=== PATIENT | male | born 1940 | race Caucasian/White ===

== ENCOUNTER → 2017-09-23 | Outpatient (CLI) | payer OTHER ==
[~2017-09-23] MED LIST: IOPAMIDOL (ISOVUE 370) 100 ML BTL IV ONE
== END ==
LOC: FIMAGING 08:48
PROVIDERS: ATTEND Surgery
DX: I74.3 Embolism and thrombosis of arteries of the lower extremities (principal); I73.9 Peripheral vascular disease, unspecified
CPT/HCPCS: 75635; Q9967; 82565-PO

== ENCOUNTER 2017-10-12 06:12 | Day surgery (SDC) | payer OTHER ==
[2017-10-12] MEDS ORDERED: ASPIRIN EC 325 MG TAB PO ONE (06:14)
[2017-10-12] MEDS ORDERED: DIAZEPAM 5 MG TAB PO ONE (06:14)
[2017-10-12] MEDS ORDERED: NS 1,000 ML IV ONE (06:14)
[2017-10-12] MEDS ORDERED: FAMOTIDINE 20 MG TAB PO ONE (06:14)
[2017-10-12] MEDS ORDERED: diphenhydrAMINE 25 MG CAP PO ONE (06:14)
--- NOTE | 2017-10-12 06:33 | CPEKG ---
Heart Rate: 55 RR Interval: 1091 P-R Interval: 196 QRSD Interval: 144 QT Interval: 428 QTC Interval: 410 P Stonewall: 66 QRS Stonewall: -15 T Wave Stonewall: -6 EKG Severity - ABNORMAL ECG - EKG Impression: SINUS RHYTHM EKG Impression: RIGHT BUNDLE BRANCH BLOCK EKG Impression: INFERIOR INFARCT, AGE INDETERMINATE Electronically Signed By: Kevin Bertrand 14-Oct-2017 21:37:06
[2017-10-12] MEDS ORDERED: CLOPIDOGREL BISULFATE 75 MG TAB ONE (06:47)
[2017-10-12 06:55] LABS: PLATELET COUNT 199 10^3/uL (150-400)
[2017-10-12] MEDS ORDERED: CLOPIDOGREL BISULFATE 75 MG TAB PO ONE (07:00)
[2017-10-12 07:04] LABS: INR 0.9 (0.83-1.16); PROTIME(PATIENT) 12.4 SEC (12.0-15.0)
--- NOTE | 2017-10-12 07:05 | PDPROPOC ---
Sedation Plan of Care Sedation Plan of Care: mental status noted, patient educated of risks, benefits , alternatives, patient can tolerate sedation ASA Classification: ASA 2 Planned drugs: fentanyl, midazolam Mallampati Score: Class 2 Mallampati Reference Image: Patient passed 3-3-2 rule?: Yes
--- NOTE | 2017-10-12 07:07 | PDGENHP ---
History & Physical Chief Complaint: claudication History of Present Illness: 76 yo male with hx of PAD presents with worsening claudication. CTA shows moderate right YARD SWITCH OPERATOR disease. Pertinent Past, Social, Family History: active runner, non-smoker Relevant Physical Exam: decreased right pedal pulses Cardiorespiratory Assessment: cta-b. rrr s1 s2. decreased right pedal pulse, 2 + LLE
[2017-10-12] MEDS ORDERED: LIDOCAINE 1% 300 MG/30 ML SDV ONE (07:10)
[2017-10-12] MEDS ORDERED: fentaNYL 100 MCG/2 ML INJ ONE (07:11)
[2017-10-12] MEDS ORDERED: MIDAZOLAM 2 MG/2 ML VIAL ONE (07:11)
[2017-10-12] MEDS ORDERED: IOPAMIDOL (ISOVUE-300) 150 ML BTL ONE (07:11)
[2017-10-12] MEDS ORDERED: HEPARIN 10,000 UNIT/10 ML MDV (1,000 UNIT/ML) ONE (07:42)
[2017-10-12] MEDS ORDERED: ATROPINE SULFATE 1 MG/10 ML SYR IVP PRN (08:53)
[2017-10-12] MEDS ORDERED: NITROGLYCERIN 0.4 MG BTL SL PRN (08:53)
[2017-10-12] MEDS ORDERED: ONDANSETRON 4 MG/2 ML VIAL IVP PRN (08:53)
[2017-10-12] MEDS ORDERED: OXYCODONE/APAP 5/325 TAB PO PRN (08:53)
[2017-10-12] MEDS ORDERED: HYDROCODONE/APAP 5/325 TAB PO PRN (08:53)
--- NOTE | 2017-10-12 09:49 | CPIP ---
[f rep st] INVASIVE CARDIAC PROCEDURE DATE OF PROCEDURE: 10/12/2017 INDICATION FOR PROCEDURE: Claudication. PROCEDURE: 1. Nonselective left groin sheathogram. 2. Abdominal aortogram. 3. Catheter placed in right common femoral artery. 4. Runoff of right lower extremity. 5. PVC LOADER of right ostial SFA utilizing 4 x 20 balloon and drug coated balloon 5.0 x 40 and 6.0 x 40. HISTORY: Briefly, this is a 76-year-old male with history of severe peripheral arterial disease. Th e patient has been having worsening right lower extremity claudication despite active therapy. The p atalban actually in fact has participated in the last 40 [employer] races. Patient had prior bilateral femoral surgery by Dr. Jong Alvarez and had been evaluated as an outpatient. CTA performe d as an outpatient showed what appeared to be moderate disease of the right ROLL FORMING MACHINE OPERATOR, SFA junction. Given these findings, patient consented for invasive angiography. DESCRIPTION OF PROCEDURE: After informed was obtained, the patient was brought to [facility] where the left groin was prepped and draped in sterile fashion. Using lidocaine, a short 6-Swiss sheath was place d in the left common artery, verified angiographically. A 6-Swiss [place] flush catheter was adva nced over the 3.5 guidewire to the ascending aorta. Abdominal aortogram was obtained which showed pa tent distal aorta, patent bilateral common iliac arteries. The right common iliac artery had 40% dif fuse disease. The bilateral internal iliac arteries appeared patent. External iliac arteries appear ed to be patent. The ROLL FORMING MACHINE OPERATOR on the left side appeared to be patent. The ROLL FORMING MACHINE OPERATOR on the right side appeared to be patent and appeared to be a grafted area from the iliac artery to the femoral artery just belo w the area of the ROLL FORMING MACHINE OPERATOR. There was a takeoff of the SFA and profunda. At this takeoff there was a lar ge amount of heavy calcification appearing to obstruct flow into both the profunda and SFA, although distally these vessels appeared to have good runoff. At this time a long stiff Glidewire was placed into the distal ROLL FORMING MACHINE OPERATOR. The Athol flush catheter was removed. The short 6-Swiss sheath removed. A 6-Swiss 45 cm sheath was placed in the right contralateral external iliac artery verified angiogra phically. INTERVENTION REPORT: The patient was administered 8000 heparin IV. A Choice PT wire was attempted t o wire across this heavy calcification. A choice PT wire was chosen secondary to the fact that the p atient did have intact profunda and SFA runoff and we wanted to preserve this flow without causing an y type of distal embolization or dissection. Runoff of the right lower extremity showed mild to mode rate calcification throughout the SFA but overall a very patent vessel. The popliteal on the right s vicky artery appeared to be patent and there appeared to be initially 3 vessel runoff to the foot. Due to the patient's elevated creatinine we decided to hold off on further angiographic views to minimiz e contrast utilization. A Choice PT wire with a Quick Cross Support 0.014 catheter was utilized and this successfully crossed the lesion in the SFA. The wire was placed distally into the SFA. We then removed the Quick Cross catheter and decided to proceed with PVC LOADER of this vessel initially with a 4 x 20 balloon noncompliant inflated to 8 atmospheres. After it was deflated, angiogram obtained which showed improved patency of the SFA. We decided to proceed with drug-coated balloon placement with a 5.0 x 40 Lutonix balloon inflated to 8 atmospheres for 2 minutes time. After deflation this was anselmo rashmi and angiography obtained which showed improved patency. Further improvement of the SFA. We then followed this with a 6.0 x 40 Lutonix drug-coated balloon. This was inflated to 8 atmospheres and k ept up for 2 minutes time. After deflation angiographic images obtained, which showed much improved patency of the SFA. Of note, the calcium did shift to the ostium of the profunda, however, the profu nda was widely patent, indicating that this calcium was not circumferential and occluding flow. At t his time, the wire was removed. The sheath was removed over the 0.035 wire and replaced with a short 7-Swiss sheath. The patient tolerated the procedure well. No complications. IMPRESSION: Successful percutaneous transluminal angioplasty with drug-coated balloon for heavily ca lcified ostial superficial femoral artery disease. PLAN: The patient will have his sheath DC 'd when his ACT is less than 170. Stenting was not utiliz ed secondary to the fact the patient had intact flow through his ROLL FORMING MACHINE OPERATOR, SFA junction as well as the fac t that any type of stent procedure may senior living off the profunda artery. Additionally by holding off coco nting the patient also has all options preserved and if needed can still have a limited endarterectom y of this site by Dr. Alvarez if needed in the future. /[id number]/MODL
== END 2017-10-12 16:15 | disposition home or self-care (01) ==
LOC: FCATH 06:12
PROVIDERS: ATTEND Internal Medicine Cardiovascular Disease
PROC: 047K3Z1 Dilation of Right Femoral Artery using Drug-Coated Balloon, Percutaneous Approach (ICD-10-PCS; principal; 2017-10-12)
PROC: B4001ZZ Plain Radiography of Abdominal Aorta using Low Osmolar Contrast (ICD-10-PCS; principal; 2017-10-12)
DX: I73.9 Peripheral vascular disease, unspecified (principal)
CPT/HCPCS: 37224; 75625; 75710; 93005; C1725; C1769; C1887; C2623; J0461; J1644; J2250; J3010; Q9967

== ENCOUNTER 2017-11-18 06:40 | Inpatient (IN) | payer OTHER ==
--- NOTE | 2017-11-17 13:06 | GHP ---
[f rep st] PREOP HISTORY AND PHYSICAL DATE OF ADMISSION: 11/18/2017 CHIEF COMPLAINT: Right leg pain. HISTORY OF PRESENT ILLNESS: The patient is a 76-year-old male with a history of carotid endarterectomy, CABG, and bilateral common femoral artery endarterectomies with patch closure on the left and iliofemoral bypass on the right, who presents with recurrent right greater than left claudication symptoms characterized by calf cramping. He is here to go over the CT angiogram with runoff. He also had arterial studies performed showing an TR of 0.74 on the right and 1.08 on the left. PAST MEDICAL HISTORY: Coronary artery disease, carotid artery occlusion, hyperlipidemia, hypertension, peripheral vascular disease. PAST SURGICAL HISTORY: Knee arthroscopy on the right, carotid endarterectomy, coronary artery bypass graft, hernia repair, vasectomy. MEDICATIONS: 1. Amlodipine 5 mg. 2. Atorvastatin 80 mg. 3. Baby aspirin. 4. Co Q10. 5. Doxazosin 2 mg. 6. Hydrochlorothiazide 25 mg. 7. Hctz-Lisinopril 40 mg. 8. Melatonin 5 mg. 9. Metoprolol tartrate 25 mg. 10. Milk thistle. 11. Plavix 75 mg. 12. Spironolactone 25 mg. 13. Trazodone 50 mg. 14. Vitamin B complex. ALLERGIES: Penicillins. FAMILY MEDICAL HISTORY: Coronary artery disease. SOCIAL HISTORY: He is a nonsmoker, current alcohol user, exercises regularly, he is with 2 kids. He denies recreational drug use. PHYSICAL EXAM: GENERAL: Well-appearing, well-dressed, no acute distress. HEENT: Normocephalic, atraumatic. Pupils equal and round. No gross hearing deficits. Mucous membranes moist. CARDIAC: Regular rate and rhythm. No clicks, murmurs or rubs. CHEST: Clear to auscultation bilaterally, no increased work of breathing. ABDOMEN: Soft and nontender. EXTREMITIES: Palpable femoral pulses, palpable left pedal pulses, nonpalpable right pedal pulses and weak, but audible, pulses on Doppler. SKIN: Warm and dry. No rashes. NEURO: Grossly intact. PSYCHIATRIC: Appropriate mood and affect. IMPRESSION/PLAN: The CT angiogram does reveal some areas of stenosis. Given his symptoms and reduced right pedal pulses, we will plan for surgical femoral- popliteal bypass graft. Risks and options were fully discussed with the patient. Risks of surgery include, but are not limited to infection, bleeding, risk of limb loss, need for further surgery, failure to heal symptoms, heart attack, and . Patient understands and wishes to proceed. /[id number]/MODL MTDD
[2017-11-18] MEDS ORDERED: CLINDAMYCIN 900 MG/DEXTROSE 50 ML IV ONE (06:46)
[2017-11-18] MEDS ORDERED: LR 1,000 ML IV ONE (06:49)
[2017-11-18] MEDS ORDERED: THROMBIN (BOVINE) 20,000 UNIT SPRAY TP ONE (07:36)
[2017-11-18] MEDS ORDERED: PAPAVERINE HCL 60 MG/2 ML SDV ONE (07:37)
[2017-11-18] MEDS ORDERED: PROTAMINE SULFATE 50 MG/5 ML VIAL IVP ONE ×2 (07:37→11:24)
[2017-11-18] MEDS ORDERED: IOTHALAMATE MEG (CONRAY) 50 ML VIAL IV ONE (07:37)
[2017-11-18] MEDS ORDERED: BUPIVACAINE 0.5% 30 ML SDV ONE (07:37)
[2017-11-18] MEDS ORDERED: THROMBIN(HUM PLAS)/FIBRINOG/CA 2 ML VIAL TP ONE (07:38)
[2017-11-18 07:48] LABS: PLATELET COUNT 185 10^3/uL (150-400)
--- NOTE | 2017-11-18 08:00 | PDHPUP ---
History & Physical Update H&P update statement: This history and physical update is based on an assessment of the patient which was completed after admission or registration (within 24 hours), but prior to the surgery/procedure. H&P update: H&P reviewed & patient examined, no change in patient's condition since H&P completed
--- NOTE | 2017-11-18 08:02 | POSTANESTH ---
Post Anesthetic Evaluation Cardiovascular Status: Normal, Stable Respiratory Status: Normal, Stable Level of Consciousness/Mental Status: Can Participate in Eval, Alert and Oriented Pain Control: Adequate, Prn Tx Ordered Nausea/Vomiting Control: Adequate, Prn Tx Ordered Complications Possibly Related to Anesthesia: None Noted
--- NOTE | 2017-11-18 08:05 | PDANEPAE ---
ANE History of Present Illness 76 yo male with R decreased pedal pulses and claudication for R fem-popliteal bypass. ANE Past Medical History - Cardiovascular History Hx Hypertension: Yes Hx Arrhythmias: No Hx Chest Pain: No Hx Coronary Artery / Peripheral Vascular Disease: Yes Hx CHF / Valvular Disease: No Hx Palpitations: No Cardiovascular History Comment: PVD,CAD - Pulmonary History Hx COPD: No Hx Asthma/Reactive Airway Disease: No Hx Recent Upper Respiratory Infection: No Hx Oxygen in Use at Home: No Hx Sleep Apnea: No Sleep Apnea Screening Result - Last Documented: Positive - Neurologic History Hx Cerebrovascular Accident: No Hx Seizures: No Hx Dementia: No - Endocrine History Hx Diabetes: No Hypothyroid: No Obesity: no - Renal History Hx Renal Disorders: No - Liver History Hx Hepatic Disorders: No - Neurological & Psychiatric Hx Hx Neurological and Psychiatric Disorders: No - Cancer History Hx Cancer: No - Congenital Disorder History Hx Congenital Disorders: No - GI History Hx Gastrointestinal Disorders: No - Other Health History Other Health History: missing 2 back molars - Chronic Pain History Chronic Pain: No - Surgical History Prior Surgeries: CABG x 5 2005, Endarterectomy 2008, Left knee meniscus sx 2014 , hernia 2015 fem-pop bypass bilat ANE Review of Systems Review of Systems: - Exercise capacity METS (RN): 4 METS - Systems Constitutional: Reports: no symptoms Cardiac: Reports: no symptoms Muscolosketal: Reports: other (claudication) ANE Patient History - Allergies Allergies/Adverse Reactions: Penicillins Allergy (Verified 11/17/17 17:30) - Home Medications Home Medications: Aspirin EC [Aspirin EC 81 mg (*)] 81 mg PO DAILY 05/28/14 [Last Taken 11/17/17] Atorvastatin Calcium [Lipitor 80 mg] 80 mg PO HS 05/28/14 [Last Taken 11/17/17] Hydrochlorothiazide [HCTZ (*)] 25 mg PO DAILY 05/28/14 [Last Taken 11/17/17 07: 00] Metoprolol Tartrate [Lopressor 25 mg (*)] 25 mg PO BID 05/28/14 [Last Taken 06:00] traZODone [traZODONE 50MG (*)] 25 - 50 mg PO HS 05/28/14 [Last Taken 11/17/17] Doxazosin Mesylate 2 mg PO HS 10/05/17 [Last Taken 11/17/17 20:00] Lisinopril [Zestril 40 mg (*)] 40 mg PO HS 10/05/17 [Last Taken 11/17/17 19:00] Melatonin [Melatonin 3 MG (*)] 3 mg PO HS PRN 10/05/17 [Last Taken 11/17/17] Spironolactone [Aldactone 25 MG (*)] 25 mg PO DAILY 10/05/17 [Last Taken ] amLODIPine BESYLATE [Norvasc 5 mg (*)] 5 mg PO DAILY 10/05/17 [Last Taken 06:00] Docusate Sodium [Colace 100 MG (*)] 100 mg PO HS 11/17/17 [Last Taken 11/17/17] - NPO status NPO Since - Liquids (Date): 11/18/17 NPO Since - Liquids (Time): 05:00 NPO Since - Solids (Date): 11/17/17 NPO Since - Solids (Time): 19:00 - Anes Hx Anes Hx: no prior problems - Smoking Hx Smoking Status: Former smoker - Alcohol Use Alcohol Use: Occasionally (14/week) - Family Anes Hx Family Anes Hx: neg - N/A Family Hx Anesthesia Complications: neg ANE Labs/Vital Signs - Labs Result Diagrams: 11/18/17 07:35 11/18/17 07:35 - Labs - BMP Creatinine: at baseline - Vital Signs Blood Pressure: 165/84 Heart Rate: 62 Respiratory Rate: 14 O2 Sat (%): 95 Height: 165.1 cm Weight: 67.132 kg ANE Physical Exam - Airway Neck exam: FROM Mallampati Score: Class 2 Mouth exam: normal dental/mouth exam - Pulmonary Pulmonary: clear to auscultation - Cardiovascular Cardiovascular: regular rate and rhythym - ASA Status ASA Status: III ANE Anesthesia Plan Anesthesia Plan: general endotracheal anesthesia Lines/Monitors: arterial line (possible)
[2017-11-18] MEDS ORDERED: PROPOFOL/EMULSION 500 MG/50 ML BOTTLE IV ONE (08:33)
[2017-11-18] MEDS ORDERED: fentaNYL 100 MCG/2 ML INJ ONE ×3 (08:33→12:05)
[2017-11-18] MEDS ORDERED: DEXAMETHASONE 4 MG/ML VIAL ONE (08:33)
[2017-11-18] MEDS ORDERED: ROCURONIUM 100 MG/10 ML VIAL ONE (08:33)
[2017-11-18] MEDS ORDERED: LIDOCAINE 2% 2 ML INJ ONE (08:33)
[2017-11-18] MEDS ORDERED: ePHEDrine SULFATE 25 MG/5 ML SYR ONE (08:47)
[2017-11-18] MEDS ORDERED: HEPARIN 10,000 UNIT/10 ML MDV (1,000 UNIT/ML) ONE (09:10)
[2017-11-18] MEDS ORDERED: VASOPRESSIN 20 UNIT/ML VIAL ONE (09:35)
[2017-11-18] MEDS ORDERED: NEOSTIGMINE METHYLSULFATE 5 MG/5 ML SYR ONE (11:26)
[2017-11-18] MEDS ORDERED: GLYCOPYRROLATE 0.2 MG/1 ML VIAL ONE (11:26)
[2017-11-18] MEDS ORDERED: oxyCODONE IR 5 MG TAB PO PRN (11:30)
[2017-11-18] MEDS ORDERED: fentaNYL 100 MCG/2 ML INJ IVP PRN (11:30)
[2017-11-18] MEDS ORDERED: ACETAMINOPHEN 500 MG TAB PO PRN (11:30)
[2017-11-18] MEDS ORDERED: ALBUTEROL 3 ML DEYVIAL IH PRN (11:30)
[2017-11-18] MEDS ORDERED: NALOXONE HCL 0.4 MG/ML INJ IVP PRN (11:30)
[2017-11-18] MEDS ORDERED: ONDANSETRON 4 MG/2 ML VIAL IVP PRN (11:30)
--- NOTE | 2017-11-18 11:57 | POSTOPPROG ---
Post Op Note Date of Operation: 11/18/17 Surgeon: Jong Alvarez Structural Steel Equipment Erector: Jessica Anesthesiologist: Farr Anesthesia: GET(General Endotracheal) Pre-op Diagnosis: PVD Post-op Diagnosis: same Indication: Claudication symptoms Procedure: Right femoral endarterectomy and goretex bypass graft Findings: Significant plaque throughout femoral artery Inf/Abcess present in the surg proc area at time of surgery?: No Depth: Deep Incisional (Fascial) EBL: 100-500 Specimen(s): Right femoral plaque
[2017-11-18] MEDS ORDERED: MELATONIN 3 MG TAB PO PRN (11:58)
[2017-11-18] MEDS ORDERED: OXYCODONE/APAP 5/325 TAB PO PRN (11:59)
[2017-11-18] MEDS ORDERED: ONDANSETRON DISINTEGRATING 4 MG TAB PO PRN (12:00)
[2017-11-18] MEDS: ASPIRIN EC 81 MG TAB PO SCH (13:31)
[2017-11-18] MEDS ORDERED: ONDANSETRON 4 MG/2 ML VIAL ONE (17:10)
--- NOTE | 2017-11-18 17:56 | PDMN ---
Medical Necessity Medical necessity: Pt meets inpt criteria per MD order and [facility] [place] S-[id number], Femoral Popliteal Bypass, inpt only surg, est LOS>2MN for monitoring/treatment, s/p vascular surgery, hypotensive 98/50, comorbidities including CAD, carotid artery occ, hyperlipidemia, HTN, periph vasc disease, adv age 76 y/o.
[2017-11-18] MEDS ORDERED: DOCUSATE SODIUM 100 MG CAP PO SCH (21:00)
[2017-11-18] MEDS ORDERED: DOXAZOSIN MESYLATE 4 MG TAB PO SCH (21:00)
[2017-11-18] MEDS ORDERED: LISINOPRIL 40 MG TAB PO SCH (21:00)
[2017-11-18] MEDS ORDERED: traZODone 50 MG TAB PO SCH (21:00)
[2017-11-18] MEDS ORDERED: ATORVASTATIN CALCIUM 40 MG TAB PO SCH (21:00)
[2017-11-18] MEDS: METOPROLOL TARTRATE 25 MG TAB PO SCH (21:11)
[2017-11-19] MEDS ORDERED: amLODIPine BESYLATE 5 MG TAB PO SCH (09:00)
[2017-11-19] MEDS ORDERED: SPIRONOLACTONE 25 MG TAB PO SCH (09:00)
[2017-11-19] MEDS ORDERED: HYDROCHLOROTHIAZIDE 25 MG TAB PO SCH (09:00)
[2017-11-19] MEDS: ASPIRIN EC 81 MG TAB PO SCH (09:06)
[2017-11-19] MEDS: METOPROLOL TARTRATE 25 MG TAB PO SCH (09:10)
[2017-11-19] MEDS ORDERED: CLOPIDOGREL BISULFATE 75 MG TAB PO SCH (09:45)
--- NOTE | 2017-11-19 11:38 | ASMTCMCOM ---
CM Note CM Note Notes: Patient is POD #1 R femoral endarterectomy and goretex bypass graft. He is normally independent and lives with his . Has two grown children. PT/OT evals have been ordered. Case Management available for any discharge needs. Date Signed: 11/19/2017 11:33 AM Electronically Signed By:Winsome Feldman RN
[2017-11-19 16:28] VITALS: BP 135/56
--- NOTE | 2017-12-02 17:52 | GOP ---
[f rep st] OPERATIVE REPORT DATE OF OPERATION: 11/18/2017 SURGEON: Jong Alvarez MD ANESTHESIA: General endotracheal anesthesia. ANESTHESIOLOGIST: Tammie Farr MD. PREOPERATIVE DIAGNOSIS: Limiting claudication, right leg. POSTOPERATIVE DIAGNOSIS: Limiting claudication, right leg. PROCEDURE PERFORMED: Right femoral endarterectomy with Lenore-Octaviano bypass to the distal superficial fem oral artery. FINDINGS: Patient was found to have markedly calcified plaques obstructing his common femoral artery and superficial femoral artery as well as the profunda femoris. He was found to have good pulses po stoperatively. DESCRIPTION OF PROCEDURE: Patient was taken to the operating room where he received a satisfactory g eneral endotracheal anesthesia by Dr. Farr. He was prepped and draped in the usual sterile fashio n. A longitudinal incision was made in the right groin. Dissection extended down through the subcut aneous tissue. Hemostasis was obtained with electrocautery. Cervical lymph nodes were ligated with 3-0 Vicryl. The superficial femoral, common femoral and profunda femoris arteries were all dissected free and controlled with vessel loops. Dissection of the common femoral extended up underneath the inguinal ligament and actually included the external iliac artery. In the superficial femoral artery the plaque was quite obstructive in the proximal 4 inches of the artery. The artery was much softer distally. Elected to bypass that dissection. Patient was systemically heparinized. An arteriotomy was made in the common femoral artery, exposing a large amount of calcified plaque and near-complete obstruction of the common femoral artery. This incision extended down into the superficial femoral artery, which was also completely obstructed. Endarterectomy then ensued of the common femoral arter y and the profunda orifice extending down into the superficial femoral artery. All debris was remove d. All vessels were flushed. A 7 mm Lenore-Octaviano graft was used. A maria was created for the common fem oral artery and profunda orifice. This was sutured in place with a running Hemashield 6 suture. All vessels were flushed, and flow was first initiated through the distal graft, and then flow was estab lished through the profunda femoris. The distal graft was then anastomosed end-to-side to the superf icial femoral artery, again using a Hemashield 7 suture, creating a 1.5 cm anastomosis. All vessels were back-flushed, and flow was then re-established down the SFA, resulting in good pulses in his fee t. Suture lines appeared to be hemostatic. The proximal SFA was ligated with an 0 silk for security reasons, even though it was actually occluded. The wound was irrigated. Hemostasis was assured. H eparin was reversed with protamine. The wound was sprayed with some topical thrombin and then closed in layers using 2-0 Vicryl for the fascia, with 3-0 Vicryl for the subcu and skin ramya for the sk in. The wound was infiltrated with 0.5% Marcaine as well. He tolerated the procedure well, was take n to the recovery room in good condition. There were no complications. /[id number]/MODL
== END 2017-11-19 18:38 | disposition home or self-care (01) | DRG 254 ==
LOC: F2W 06:40 → F2N 12:42
PROVIDERS: ADMIT Surgery; ATTEND Surgery
PROC: 041K0JH Bypass Right Femoral Artery to Right Femoral Artery with Synthetic Substitute, Open Approach (ICD-10-PCS; principal; 2017-11-18 08:15)
PROC: 04CK0ZZ Extirpation of Matter from Right Femoral Artery, Open Approach (ICD-10-PCS; principal; 2017-11-18 08:15)
DX: I70.211 Atherosclerosis of native arteries of extremities with intermittent claudication, right leg (principal); I25.10 Atherosclerotic heart disease of native coronary artery without angina pectoris; I10 Essential (primary) hypertension; E78.5 Hyperlipidemia, unspecified; Z95.1 Presence of aortocoronary bypass graft
CPT/HCPCS: 97161-GP; 97165-GO; C1768; G8978-GP-CH; G8979-GP-CH; G8980-GP-CH; G8987-GO-CI; G8988-GO-CI; G8990-GO-CI; J1100; J1644; J2405; J2440; J2704; J2710; J2720; J3010; Q9961